=== PATIENT | male | born 1960 | race Caucasian/White ===

== ENCOUNTER → 2016-12-07 | Day surgery (SDC) | payer OTHER ==
[~2016-12-07] VITALS: Ht 180.3 cm; Wt 75.8 kg
[2016-12-07 07:46] LABS: HCT 53.6 % (42.0-52.0); MCH 30.1 pg (25.0-31.0); MCHC 33.6 g/dL (32.0-36.0); MCV 89.6 fL (78.0-100.0); MPV 9.6 fL (6.0-9.5); RBC 5.98 M/uL (4.70-6.00); WBC 7.8 K/uL (4.0-10.5)
[2016-12-07 08:06] LABS: ALBUMIN 4.2 g/dL (3.5-5.0); CREATININE 0.7 mg/dL (0.7-1.2); GLOBULIN (CALCULATION) 3.8 g/dL (2.2-4.2); POTASSIUM 4.5 mmol/L (3.5-5.1)
== END | disposition home or self-care (01) ==
LOC: FAS 07:13
PROVIDERS: Surgery
DX: Z12.11 Encounter for screening for malignant neoplasm of colon (principal); K64.1 Second degree hemorrhoids; K64.4 Residual hemorrhoidal skin tags; D12.6 Benign neoplasm of colon, unspecified; K21.9 Gastro-esophageal reflux disease without esophagitis; I10 Essential (primary) hypertension; E11.9 Type 2 diabetes mellitus without complications; E78.5 Hyperlipidemia, unspecified; F17.210 Nicotine dependence, cigarettes, uncomplicated; J44.9 Chronic obstructive pulmonary disease, unspecified; M19.90 Unspecified osteoarthritis, unspecified site; Z79.899 Other long term (current) drug therapy; Z98.890 Other specified postprocedural states
CPT/HCPCS: 36415; 80053; 88305; J2704

== ENCOUNTER 2021-12-06 11:45 | Emergency (ER) | payer OTHER ==
[~2021-12-06 11:45] MED LIST: VOLTAREN **OUT75 MG PO
[2021-12-06] MEDS ORDERED: NORCO 5/3251 EACH PO (13:59)
== END 2021-12-06 14:15 | disposition home or self-care (01) ==
LOC: FER 11:45
DX: S53.125A Posterior dislocation of left ulnohumeral joint, initial encounter (principal); I10 Essential (primary) hypertension; E11.9 Type 2 diabetes mellitus without complications; J44.9 Chronic obstructive pulmonary disease, unspecified; F17.210 Nicotine dependence, cigarettes, uncomplicated; W13.2XXA Fall from, out of or through roof, initial encounter; Y92.009 Unspecified place in unspecified non-institutional (private) residence as the place of occurrence of the external cause
CPT/HCPCS: 71045; 73030; 73070